=== PATIENT | female | born 1990 | race Caucasian/White ===

== ENCOUNTER 2023-05-18 12:26 | Observation (INO) | payer OTHER, SELFPAY ==
--- NOTE | 2023-05-18 12:26 | OBADM ---
This patient, Isadora Pagan, admitted to the OB room OB Post 113 for observation. Patient states she had brownish vaginal bleeding at 1100, now the bleeding has stopped. Denies cramping or any pain. Patient/family oriented to hospital policies and general routines including ID bracelet, bed and alarms, visiting hours, pain management, procedures, bathroom and other care routines, personal items, smoking policy, room service/diet, and visiting hours. Patient/Family are encouraged to report perceived risks to care and to ask questions if they do not understand what they are told or what they should do.
[2023-05-18 12:51] VITALS: BP 120/66; PULSE 87
--- NOTE | 2023-05-24 12:47 | PM.OBTRLD ---
OB - Triage/Final Diagnosis Visit Information Date of evaluation: 05/18/23 Reason for evaluation: other (spotting) Comments/Additional reasons for admission: I have assessed the risk for this patient, Isadora Pagan, and determined that she would benefit from observation care.
== END 2023-05-18 13:32 ==
PROVIDERS: Admitting Provider Obstetrics & Gynecology Gynecology; PCP Advanced Practice Midwife; Visit Provider Obstetrics & Gynecology Gynecology
DX: O26.852 Spotting complicating pregnancy, second trimester (principal); Z3A.21 21 weeks gestation of pregnancy
CPT/HCPCS: G0378; G0379

== ENCOUNTER 2023-09-06 20:22 | Outpatient (RCR) | payer OTHER, SELFPAY ==
[2023-09-06 20:49] VITALS: BP 112/75; PULSE 86
--- NOTE | 2023-09-06 20:59 | PC.NURSE ---
2025: Patient arrived to unit with complaints of DFM since this morning. Patient is a with GDM insulin dependent. Patient denies vaginal bleeding and leaking of fluid. RN gave patient the marker button to carlos movement
--- NOTE | 2023-09-06 21:00 | PC.NURSE ---
2049: Patient marking good movement. Patient okay with being discharged to home.
== END 2023-09-21 08:12 | disposition home or self-care (01) ==
LOC: ANHOBOP 20:22
PROVIDERS: PCP Family Medicine; Visit Provider Advanced Practice Midwife
DX: O36.8190 Decreased fetal movements, unspecified trimester, not applicable or unspecified (principal); O24.414 Gestational diabetes mellitus in pregnancy, insulin controlled; Z3A.36 36 weeks gestation of pregnancy
CPT/HCPCS: 59025

== ENCOUNTER 2023-09-12 09:59 | Outpatient (CLI) | payer OTHER, SELFPAY ==
--- NOTE | ~2023-09-12 | US_ITS ---
EXAMINATION: US OB follow up DATE: 09/12/2023 10:39 INDICATION: Gestational diabetes. TECHNIQUE: Real-time transabdominal obstetric ultrasound. FINDINGS: No prior studies for comparison. There is a single living fetus in vertex presentation. The placenta is anterior without placenta pre via. cardiac activity and movement is noted with a heart rate of 150 beats per minute. T he amniotic fluid volume is normal. SHANIQUA measures 15.5 cm. The following biometric data were obtained: BPD: 91mm corresponds to gestational age 37 weeks 0 days. Head circumference: 331mm corresponds to gestational age 37 weeks 5 days. Abdominal circumference: 327mm corresponds to gestational age 36 weeks 4 days. Femur length: 72mm corresponds to gestational age 37 weeks 0 days. Estimated weight: 3059grams +/- 459grams 38.4%.] IMPRESSION: 1. Single living intrauterine in vertex presentation with an estimated gestational age of 37 weeks 1 days by current ultrasound. 2. Normal SHANIQUA measures 15.5 cm. Reviewed, dictated and finalized at location B. IMPRESSION: 1. Single living intrauterine in vertex presentation with an estimat ed gestational age of 37 weeks 1 days by current ultrasound. 2. Normal SHANIQUA measures 15.5 cm.
== END 2023-09-12 10:00 ==
PROVIDERS: PCP Family Medicine; Visit Provider Advanced Practice Midwife
DX: O24.414 Gestational diabetes mellitus in pregnancy, insulin controlled (principal); Z3A.37 37 weeks gestation of pregnancy
CPT/HCPCS: 76816

== ENCOUNTER 2023-09-22 05:39 | Inpatient (IN) | payer OTHER, SELFPAY ==
[2023-09-22] VITALS (102 sets, daily range): BP systolic 80–128; BP diastolic 33–102; PULSE 76–150; RESP 16–18; TEMP 36.7–37.8; O2SAT 90–100; BMI 34.8
--- NOTE | 2023-09-22 05:39 | LDADM ---
This patient, Isadora Pagan, was admitted to Labor/Delivery/Recovery 106 on 09/22/23 at 05:39. Plans for labor, pain management and were discussed with patient. Patient/family oriented to hospital policies and general routines including ID bracelet, bed and alarms, visiting hours, pain management, procedures, bathroom and other care routines, personal items, smoking policy, room service/diet and guest tray routines, infant security routines, and visiting hours. Patient/Family are encouraged to report perceived risks to care and to ask questions if they do not understand what they are told or what they should do. See OBIX for further documentation.
[2023-09-22] MEDS: LACTATED RINGERS 1,000 ML 999 ML IV CONT ×2 (06:33→07:07)
[2023-09-22 06:42] LABS: Basophils Absolute Auto 0.1 K/mm3 (0.0-0.1); Basophils Percent Auto 0.5 % (0.2-1.2); Eosinophils Absolute Auto 0.1 K/mm3 (0-0.3); Eosinophils Percent Auto 0.8 % (0-4.4); Hematocrit 43.1 % (37.0-47.0); Immature Granulocyte Absolute 0.12 K/mm3 (0.00-0.031); Immature Granulocyte Percent A 0.8 % (0-0.5); Lymphocytes Absolute Auto 1.68 K/mm3 (0.9-3.2); Lymphocytes Percent Auto 11.7 % (18.3-44.2); Mean Corpuscular HGB Conc 34.8 g/dl (32-36); Mean Corpuscular Hemoglobin 32.3 pg (26-34); Mean Corpuscular Volume 92.9 fl (80-100); Mean Platelet Volume 8.7 fl (7.4-10.4); Monocytes Percent Auto 7.2 % (2.6-8.5); Neutrophils Absolute Auto 11.3 K/mm3 (1.3-6.7); Platelet Count Result 261 k/mm3 (150-375); Red Blood Count 4.64 M/mm3 (4.2-5.4); Red Cell Distribution Width 13.1 % (11.5-14.5); White Blood Count 14.3 K/mm3 (4.5-10.0)
[2023-09-22 06:53] LABS: Alanine Aminotransferase 26 U/L (6-35); Albumin Level 3.8 g/dL (3.5-5.1); Alkaline Phosphatase 148 U/L (38-126); Anion Gap 8 mmol/L (4-12); Aspartate Amino Transferase 30 U/L (14-36); Bilirubin,Total 0.4 mg/dL (0.2-1.3); Blood Urea Nitrogen 11 mg/dL (7-17); Calcium 9.3 mg/dL (8.4-10.2); Carbon Dioxide 19 mmol/L (22-30); Chloride 110 mmol/L (98-107); Estimated CRCL calculation 158 ml/min; Estimated Glomerular Filt Rate > 60; Glucose 91 mg/dL (65-110); Potassium 3.8 mmol/L (3.4-5.0); Sodium 137 mmol/L (137-145)
--- NOTE | 2023-09-22 07:15 | WPDOBADMIT ---
Obstetrics - Admit Note Admission Note: record reviewed. No pertinent additions to the history and/or any subsequent changes in the physical findings that are not consistent with the expected course of the were found. Additions to the history and/or subsequent changes in the physical findings follow. Pt admitted in spontaneous labor.
--- NOTE | 2023-09-22 07:16 | PM.OBPNLAB ---
Pain Control Date/time seen: 09/22/23 07:11 Pain control: epidural Comments: Pt recently received epidural. Resting in low fowlers. Still feeling some ctx discomfort. Pelvic Exam Comments: No SVE at this time. Contractions Monitor mode: External Contraction frequency: 3 (2.5-4) Contraction duration: 80 (70-90) Contraction pattern: Regular Contraction intensity: Strong/Firm Status status: Category l Assessment and Plan Assessment: active labor Comments: Plan of care discussed with pt and S.O. Plan to allow analgesia from epidural increase before SVE. Anticipate vaginal . Dr. Holloway updated.
--- NOTE | 2023-09-22 07:21 | PM.OBPRVD ---
OB - Vaginal Delivery Note Procedure Delivery date: 09/22/23 Events: Gestational Diabetes (GDMA2) Induction method: None Delivery monitor: External FHT and External Uterine Route of delivery: Episiotomy description: None Laceration Description: Periurethral, Vaginal (2nd degree) and Labial (superficial, bilateral) Delivery repair: vicryl Specimen: Yes (placenta) Quantitative Blood Loss (ml): 175 Anesthesia type: Epidural Disposition: Floor Complications: No immediate complications Narrative: Isadora arrived to the unit in labor and was found to be 8cm. She received an epidural for pain control. Shortly after she had spontaneous rupture membranes and very dark green/brown meconium was noted. She progressed to complete dilation and pushed with contractions. she brought the head to complete crown and delivered over intact perineum after which fair restitution was observed. There is smooth delivery of the anterior and posterior shoulders followed by remainder of the . The infant was placed on the maternal abdomen and dried InStent the staff. The cord was doubly clamped and cut. The placenta was delivered spontaneously. A second-degree vaginal laceration was repaired in the usual fashion. There were bilateral labial lacerations that were hemostatic. All delivery counts correct. There was excellent uterine tone. Mother baby skin the skin in the delivery room. [place] Baby Date of : 09/22/23 Time of : 12:23 Weeks of gestation at delivery: 39 Infant gender: Female Weight (pounds): 7 Weight (ounces): 13 presentation: vertex position: Right Occiput Anterior Placenta delivery description: Spontaneous and Normal Configuration (marginal insertion, meconium stained) Cord Vessel Description: 3 Vessels and Delayed Cord Clamping score one minute: 8 score five minutes: 9
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
--- NOTE | 2023-09-22 07:30 | PM.OBPNLAB ---
Pain Control Date/time seen: 09/22/23 07:30 Pain control: tolerating well and epidural Pelvic Exam Dilation (cm): 8 Effacement (%): 100 station: -1 Amniotic membrane status: Ruptured Comments: Large amount of very dark brown present. More cervix present on pt's right side. Contractions Monitor mode: External Contraction frequency: 3 (2.5-4) Contraction pattern: Regular Contraction intensity: Strong/Firm Status status: Category l Assessment and Plan Assessment: active labor Plan: continuous present management
[2023-09-22 07:34] LABS: HIV 1/2 Ab P24 Ag Result Negative (Negative)
[2023-09-22 07:56] LABS: Glucose Point of Care 95 mg/dl (65-105)
[2023-09-22 08:50] LABS: Glucose Point of Care 80 mg/dl (65-105)
[2023-09-22 09:56] LABS: Glucose Point of Care 84 mg/dl (65-105)
[2023-09-22 10:55] LABS: Glucose Point of Care 80 mg/dl (65-105)
[2023-09-22] MEDS: OXYTOCIN 30 UNITS/NS 500 ML 30 UNITS/500 ML BAG 125 UNITS IV CONT (12:59)
[2023-09-22 13:39] LABS: Rapid Plasma Reagin Non-Reactive (NonReactive)
--- NOTE | 2023-09-22 15:07 | OBPPTRN ---
Patient transferred to post room # 290 via wheelchair. Support person present. Oriented to unit, room, information board, rooming in, admission packet and security measures. Patient verbalizes understanding.
[2023-09-22] MEDS: IBUPROFEN 600 MG TABLET PO (19:11)
[2023-09-22] MEDS: ACETAMINOPHEN 325 MG TABLET 650 MG PO (21:04)
[2023-09-23 05:49] LABS: Hematocrit 37.9 % (37.0-47.0); Hemoglobin 12.9 g/dL (12.0-15.0)
[2023-09-23 07:15] VITALS: BP 114/68; PULSE 76; RESP 16; TEMP 36.6; O2SAT 99
[2023-09-23] MEDS: MULTIVIT/MIN/PREN/FOL AC/IRON TABLET 1 TAB PO (08:48)
[2023-09-23] MEDS: DOCUSATE SODIUM 100 MG CAPSULE PO ×2 (08:48→16:02)
[2023-09-23] MEDS: CHOLECALCIFEROL 1,000 UNITS TABLET 2000 UNITS PO (08:49)
[2023-09-23] MEDS: BENZOCAINE 20% AER SPR (*SP) 56 GM CAN 1 SPRAY TOPICAL (08:52)
--- NOTE | 2023-09-23 10:42 | WPDANLDPN2 ---
Anes-Prog Note L&D Date/Time: 09/23/23 10:42 Comfortable throughout: labor and delivery Neuraxial method: epidural Epidural/Spinal procedure site: clean & non-tender Neuro status: Neuro function grossly intact. Cardiovascular status: normal Respiratory status: normal Airway patency: baseline Mental status: baseline Post-Op hydration status: normal Vital Signs: Last Vital Signs Temp 36.6 C 09/23/23 07:15 Pulse 76 09/23/23 07:15 Resp 16 09/23/23 07:15 BP 114/68 09/23/23 07:15 Pulse Ox 99 09/23/23 07:15 O2 Del Method Room Air 09/23/23 08:45 Pain score (VAS): 0/10 Post-procedural complaints: none Patient feedback: Patient satisfied with anesthetic care.
--- NOTE | 2023-09-23 11:17 | PM.OBPNVD ---
OB - PN: Subj Subjective Date/time seen: 09/23/23 0745 Interval history: Doing well. Urinating without difficulty. Denies passing any large clots. Denies dizziness with ambulating. Tolerating po food and fluids. Bonding with . Patient comments: no complaints and pain well controlled [place] baby status: doing well (difficulty latching) feeding status: breast and bottle feeding OB - PN: Obj Data Labs 09/23/23 05:40 09/22/23 06:33 Labs: Laboratory Results - last 24 hr 09/22/23 09/23/23 07:51 05:40 Hgb 12.9 Hct 37.9 RPR Non-reactive OB - PN A/P Assessment and Plan (1) (normal spontaneous vaginal delivery): Code(s): O80 - Encounter for full-term uncomplicated delivery Status: Acute (2) Exclusive by mother: Code(s): Z78.9 - Other specified health status Status: Acute (3) Anxiety and depression: Code(s): F41.9 - Anxiety disorder, unspecified; F32.A - Depression, unspecified Status: Acute (4) At risk for ineffective : Code(s): Z91.89 - Other specified personal risk factors, not elsewhere classified Status: Acute Plan day: 1 Plan: routine care Time Spent With Patient Time: Total time spent is greater than 50% in coordination of care (as documented) at patient's floor/unit and/or counseling patient: Review of Systems Review of Systems: All systems reviewed & are unremarkable except as noted in HPI and below Exam Narrative: Alert and oriented. Mood is pleasant and cooperative. Perineum with minimal edema. Fundus firm and below umbilicus. Const: General: cooperative, healthy appearing, no acute distress and alert Orientation/consciousness: patient oriented x3 Limitations: no limitations Resp: Effort & Inspection: normal respiratory effort and able to speak in complete sentences Auscultation: clear to auscultation bilaterally Cardio: Rate: regular rate GI: Inspection: normal to inspection Auscultation: normal bowel sounds : General: Yes bladder normal to palpation External Female Exam: other (lochia WNL) Bimanual exam- vagina & uterus: bladder normal to palpation Other: Fundus firm and below U Skin: General skin exam: normal color and no rashes or lesions noted Neuro: General: patient oriented x3 and moves all extremities Cognition (Neuro): normal cognition Extrem: General: normal to inspection and no calf tenderness Psych: Appearance: grossly normal Mental Status: mental status grossly normal Affect: normal affect Thought process: Normal thought process present
--- NOTE | 2023-09-23 11:23 | PC.NURSE ---
[id number]. Introductions were made, then consulted with patient to assess needs related to . Mother led the conversation with her?plans to feed?her and the?experience so far. Mother explained she has sore nipples and pain while due to babies tongue tie. Mom explained she has also been using a breast shield so far, and has pumped x1. RN discussed some of the complications that can be associated with a tongue tie. RN explained that a tongue tie can impact the effectiveness of the emptying the breasts of milk and how overtime that can decrease milk supply. RN discussed with mom the possible need for nipple rest and how we need to protect the nipples from further damage while also protecting her milk supply by pumping every 3 hours if infant does not latch and nurse for at least 10 min. Mother verbalized infant wasnt for a feeding at this time, so RN offered to come back when she's ready and to use her call light to call. Encouraged understanding of the benefits of skin to skin (demonstrating unwrapping and placing upright on her chest), stimulating with massage touch, changing positions to encourage wakefulness, how to watch for early feeding cues, responsive feeding, feeding on demand (aiming for 8-12 times in 24 hours, about every 2-3 hours), milk production, building/maintaining a milk supply, duration of feeding, signs of adequate intake/output and how to record on the feeding sheet. Reviewed comfort measures of healing with a warm, wet washcloth to rinse breast, then leave open to air-dry, good handwashing when or touching the breast/nipples to prevent infection. Reviewed using breast milk on the breasts with sores and allowing to air dry for healing. Mother voiced understanding of skin to skin, stimulating with massage touch, responsive feedings, hand expressed colostrum, talking to to encourage if it has been 2 -2.5 hours since the start of the last , to call if infant does not latch, or if there is discomfort with . Resources used for education were facilitated with the visual educational handouts &mom and baby guide.Inpatient resources provided with feeding sheet& name written on the communication board, and the mom/baby guide. Parents voiced understanding of information, demonstrated learning and will call if there is a request for assistance. Reported to the Primary RN.
[2023-09-23 12:00] VITALS: BP 116/77; PULSE 75; RESP 20; TEMP 37.2; O2SAT 98
[2023-09-23 19:51] VITALS: BP 117/78; PULSE 83; RESP 18; TEMP 36.5; O2SAT 98
--- NOTE | 2023-09-24 07:46 | PM.OBPNVD ---
OB - PN: Subj Subjective Date/time seen: 09/24/23 07:46 Interval history: . Patient comments: no complaints and pain well controlled baby status: doing well OB - PN: Obj Data Labs 09/23/23 05:40 09/22/23 06:33 OB - PN A/P Plan day: 2 Plan: routine care, discharge home, follow up 6 weeks and other (plan POP) Time Spent With Patient Time: Total time spent is greater than 50% in coordination of care (as documented) at patient's floor/unit and/or counseling patient: Exam : Bimanual exam- vagina & uterus: other (Uterus firm, nt @U)
[2023-09-24] MEDS: DOCUSATE SODIUM 100 MG CAPSULE PO (08:32)
[2023-09-24] MEDS: CHOLECALCIFEROL 1,000 UNITS TABLET 2000 UNITS PO (08:32)
[2023-09-24] MEDS: MULTIVIT/MIN/PREN/FOL AC/IRON TABLET 1 TAB PO (08:32)
[2023-09-24 08:35] VITALS: BP 119/77; PULSE 91; RESP 16; TEMP 36.7; O2SAT 99
--- NOTE | 2023-09-24 11:00 | PC.NURSE ---
Patient viewed the discharge video Mother & Baby Care, The First Two Weeks . Patient was given the opportunity and encouraged to ask questions. Patient verbalized understanding of information shared and has been given the mother/baby guide for home reference.
[2023-09-25 10:57] VITALS: BP 121/71; PULSE 71; RESP 18; TEMP 37; O2SAT 100
== END 2023-09-24 11:58 | disposition home or self-care (01) | DRG 807 ==
LOC: ANHLDR 07:36 → ANHOB2 15:17
PROVIDERS: Admitting Provider Obstetrics & Gynecology Gynecology; PCP Family Medicine; Referring Provider Advanced Practice Midwife; Visit Provider Obstetrics & Gynecology Gynecology
DX: O24.429 Gestational diabetes mellitus in childbirth, unspecified control (principal); Z37.0 Single live birth; Z3A.39 39 weeks gestation of pregnancy; O77.0 Labor and delivery complicated by meconium in amniotic fluid; O70.1 Second degree perineal laceration during delivery; O71.82 Other specified trauma to perineum and vulva; O99.344 Other mental disorders complicating childbirth; F32.A Depression, unspecified; F41.9 Anxiety disorder, unspecified
CPT/HCPCS: 36415; 80053; 82948; 85014; 85018; 85025; 86592; 86703; 86850; 86900; 86901; 88307; A9270; G0432; J2590; J2795; J7120